=== PATIENT | female | born 1995 | race Caucasian/White ===

== ENCOUNTER 2021-01-14 12:40 | Emergency (ER) | payer OTHER ==
[~2021-01-14] VITALS: Ht 167.6 cm; Wt 70.9 kg
[2021-01-14] MEDS ORDERED: ZOLO100T PO (12:50)
[2021-01-14] MEDS ORDERED: NEXP1IMP SC (12:50)
[2021-01-14] MEDS ORDERED: NS 1,000 ML IV ONE (13:15)
[2021-01-14] MEDS ORDERED: ACETAMINOPHEN 325 MG TAB PO ONE (13:15)
[2021-01-14] MEDS ORDERED: diphenhydrAMINE 50MG/ML VIAL (J1200) IV ONE (13:15)
[2021-01-14] MEDS ORDERED: ONDANSETRON 4MG/2ML VIAL IV ONE (13:40)
[2021-01-14 13:54] LABS: BASO # 0.1 10^3/uL (0.0-0.2); BASO % 0.8 % (0.0-1.0); EOS # 0.2 10^3/uL (0.0-0.5); EOS % 2.3 % (0.0-3.0); HEMATOCRIT 38.7 % (36.0-47.0); HEMOGLOBIN 13.1 g/dl (12.0-15.5); LYMPH # 2.2 10^3/uL (1.5-5.0); MEAN CORPUSCULAR HEMOGLOBIN 30.7 pg (27.0-33.0); MEAN CORPUSCULAR HGB CONC 33.9 g/dl (32.0-36.5); MEAN CORPUSCULAR VOLUME 90.6 fl (80.0-96.0); MONO # 0.7 10^3/uL (0.0-0.8); MONO % 8.7 % (2.0-8.0); NEUTROPHILS # 5.2 10^3/uL (1.5-8.5); PLATELET COUNT, AUTOMATED 221 10^3/uL (150-450); RED BLOOD COUNT 4.27 10^6/uL (4.00-5.40); WHITE BLOOD COUNT 8.4 10^3/uL (4.0-10.0)
[2021-01-14 14:15] LABS: HCG, SERUM QUALITATIVE NEGATIVE (NEGATIVE)
[2021-01-14 14:28] LABS: RSV AMPLIFICATION NEGATIVE (NEGATIVE)
[2021-01-14 14:47] LABS: ALBUMIN 4.6 GM/DL (3.2-5.2); ALT/SGPT 24 U/L (12-78); BILIRUBIN,DIRECT 0.1 MG/DL (0.0-0.2); BILIRUBIN,TOTAL 0.5 MG/DL (0.2-1.0); BLOOD UREA NITROGEN 11 MG/DL (7-18); CARBON DIOXIDE LEVEL 27 MEQ/L (21-32); CHLORIDE LEVEL 106 MEQ/L (98-107); CREATININE FOR GFR 1.35 MG/DL (0.55-1.30); GLOMERULAR FILTRATION RATE 50.1 (>60); GLUCOSE, FASTING 85 MG/DL (70-100); LIPASE 176 U/L (73-393); SODIUM LEVEL 138 MEQ/L (136-145); TOTAL PROTEIN 8.1 GM/DL (6.4-8.2)
[2021-01-14] MEDS ORDERED: SYNT25TA PO (15:48)
[2021-01-14 15:59] VITALS: BP 105/69
== END 2021-01-14 16:02 | disposition home or self-care (01) ==
LOC: M ED 12:40
DX: R51.9 Headache, unspecified (principal); R94.6 Abnormal results of thyroid function studies; R11.2 Nausea with vomiting, unspecified; R19.7 Diarrhea, unspecified; Z90.89 Acquired absence of other organs; F32.9 Major depressive disorder, single episode, unspecified; E05.00 Thyrotoxicosis with diffuse goiter without thyrotoxic crisis or storm; Z88.8 Allergy status to other drugs, medicaments and biological substances
CPT/HCPCS: 80048; 80076; 83690; 84439; 84443; 84703; 85025; 86850; 86900; 86901; 87631; 96361; 96374; 96375; 99284; J1200; J2405